=== PATIENT | female | born 1980 | race Caucasian/White ===

== ENCOUNTER 2017-06-20 22:51 | Emergency (ER) | payer OTHER ==
[~2017-06-20] VITALS: Ht 165.1 cm; Wt 63.5 kg
[2017-06-20] MEDS ORDERED: HYDR-548 PO (23:05)
[2017-06-20] MEDS ORDERED: METR500T PO (23:05)
[2017-06-20] MEDS ORDERED: CLAR500T PO (23:05)
[2017-06-20] MEDS ORDERED: ONDA4TAB11 PO (23:05)
[2017-06-20] MEDS ORDERED: FAMO40TA7 PO (23:05)
--- NOTE | 2017-06-20 23:29 | NUR ---
Patient discharged to home in stable conditon. Written and verbal after care instructions given. Patient verbalizes understanding of instructions.
[2017-06-20] MEDS ORDERED: TRAMADOL HCL 50 MG TABLET PO ONE (23:30)
[2017-06-20] MEDS ORDERED: TRAMADOL HCL 50 MG TABLET ONE ×2 (23:35→23:38)
== END 2017-06-20 23:30 | disposition other institution (70) ==
LOC: ER 22:51
DX: K27.9 Peptic ulcer, site unspecified, unspecified as acute or chronic, without hemorrhage or perforation (principal); Z88.0 Allergy status to penicillin
CPT/HCPCS: 99283; A4663